=== PATIENT | female | born 1945 | race Caucasian/White ===

== ENCOUNTER 2017-05-19 11:48 | Emergency (ER) | payer MEDICARE, BC ==
[~2017-05-19] VITALS: Ht 144.8 cm; Wt 67.0 kg
[2017-05-19 11:58] VITALS: BP 108/66; PULSE 92; RESP 16; TEMP 98; O2SAT 98
[2017-05-19] MEDS ORDERED: IBUP200T47 PO (12:11)
[2017-05-19] MEDS ORDERED: VALS1TAB64 PO (12:11)
[2017-05-19] MEDS ORDERED: LUTE20CA PO (12:11)
[2017-05-19] MEDS ORDERED: ACETAMINOPHEN/HYDROcodone 325 MG/5 MG TAB PO ONE (12:45)
[2017-05-19] MEDS ORDERED: NORC5TAB PO (12:57)
[2017-05-19] MEDS ORDERED: NEUR100C PO (12:57)
--- NOTE | 2017-05-19 12:57 | PD ---
HPI Chief Complaint: Pain: Acute or Chronic Time Seen by Provider: 12:08 Travel History International Travel<30 days: No Contact w/Intl Traveler<30days: No Traveled to known affect area: No History of Present Illness HPI The patient is a 71-year-old female who presents to the emergency department for right facial pain. The patient was diagnosed with shingles on April 29, 2017 by her physician in [place]. The patient states she had a rash the right side of face from the midline of the right mouth up into the right ear. The patient was treated with valacyclovir at that time. The rash improved, however, she continues have pain along the right jaw. The patient states she is currently in [place] for 3 months, vacationing from [place] over the wintertime, does not have a local primary physician. She denies any ocular pain, redness, or drainage from the right eye. She does complain of mild tearing from the right eye secondary to the pain. She denies any diminished hearing out of the right ear. She does note the rash has dissipated. Symptoms are moderate, possibly exacerbated by recent shingles infection, and there are no current alleviating factors. PFSH Past Medical History Diminished Hearing: No Shingles: Yes Tetanus Vaccination: > 5 Years Influenza Vaccination: No Tubal Ligation: Yes Social History Alcohol Use: Yes (ocassionally) Tobacco Use: No Substance Use: No Allergies-Medications (Allergen,Severity, Reaction): Coded Allergies: No Known Allergies (Unverified , 05/19/17) Reported Meds & Prescriptions Reported Meds & Active Scripts Active Reported Lutein 20 Mg Cap 20 Mg PO DAILY Ibuprofen 200 Mg Tab 600 Mg PO ONCE Valsartan 80 Mg Tab 80 Mg PO DAILY Review of Systems Except as stated in HPI: all other systems reviewed are Neg General / Constitutional: No: Fever Eyes: Positive: Tearing, No: Blurred Vision, Photophobia, Drainage, Redness, Foreign Body Sensation, Pain, Visual changes HENT: Positive: Other (as noted in the history of present illness), No: Headaches Skin: Positive Other (as noted in the history of present illness) Neurologic: No: Paresthesia, Sensory Disturbance Physical Exam Narrative GENERAL: Awake, alert, pleasant 71-year-old female who appears her stated age and is in no acute respiratory distress. SKIN: Focused skin assessment warm/dry. No stigmata of shingles over the right side of the face. HEAD: Atraumatic. Normocephalic. EYES: Pupils equal and round. Pupils are 4 mm bilateral and reactive. EOMs are intact. Patient is able close the eyelids bilaterally with strength. No injection noted. No drainage noted. ENT: No nasal bleeding or discharge. Mucous membranes pink and moist. Right TM cannot be visualized. Right EAC cerumen impaction. NECK: Trachea midline. No JVD. MUSCULOSKELETAL: No obvious deformities. No clubbing. No cyanosis. No edema. NEUROLOGICAL: Awake and alert. No obvious cranial nerve deficits. Motor grossly within normal limits. Normal speech. PSYCHIATRIC: Appropriate mood and affect; insight and judgment normal. Data Data Last Documented VS Vital Signs Date Time Temp Pulse Resp B/P (MAP) Pulse Ox O2 Delivery O2 Flow Rate FiO2 05/19/17 11:58 98.0 92 16 108/66 (80) 98 Orders Orders Acetamin-Hydrocod 325-5 Mg ([place] 5-325 (05/19/17 12:45) [facility] Medical Decision Making Medical Screen Exam Complete: Yes Emergency Medical Condition: Yes Medical Record Reviewed: Yes Differential Diagnosis Differential diagnosis includes trigeminal neuralgia, shingles, postherpetic neuralgia, Mike Ludwig syndrome, neuropathy, TMJ. Narrative Course The patient most likely has postherpetic neuralgia as she recently had shingles one month ago and continues to have pain. After discussion with the patient it was agreed we would put her on Neurontin and [place] as needed, she will follow- up with her primary physician to titrate Neurontin as needed. Diagnosis Primary Impression: Postherpetic neuralgia Patient Instructions: General Instructions Additional Instructions: Medications as directed. Follow-up with your primary physician. Return if symptoms worsen or progress. You may need your Neurontin increased in the future. Med/Other Pt SpecificInfo: Prescription(s) given Scripts Hydrocodone-Acetaminophen ([place]) 5 Mg-325 Mg Tab 1 TAB PO Q6H Y for PAIN, #15 TAB 0 Refills Prov: Srinivas Miller MD 05/19/17 Gabapentin (Neurontin) 100 Mg Cap 100 MG PO TID, #90 CAP 0 Refills Prov: Srinivas Miller MD 05/19/17 Disposition: 01 DISCHARGE HOME Condition: Stable Srinivas Miller MD May 19, 2017 12:57
== END 2017-05-19 13:35 | disposition home or self-care (01) ==
LOC: PHEFT 11:48
DX: B02.29 Other postherpetic nervous system involvement (principal); Z79.899 Other long term (current) drug therapy
CPT/HCPCS: 99284